=== PATIENT | female | born 1955 | race Caucasian/White ===

== ENCOUNTER 2021-05-13 08:54 | Day surgery (SDC) | payer BC ==
[2021-05-11 11:33] VITALS: BMI 35.9
[~2021-05-13 08:54] MED LIST: SODIUM CHLORIDE 0.9% 1,000 ML IV SCH
[2021-05-13 09:41] VITALS: RESP 16; TEMP 97.9
[2021-05-13 09:47] LABS: Calcium 9.5 mg/dL (8.4-10.2)
[2021-05-13 09:51] LABS: Potassium 4.8 mmol/L (3.5-5.1)
[2021-05-13] MEDS ORDERED: PROPOFOL 10 MG/ML 20 ML VIAL IV ONE (10:15)
[2021-05-13] MEDS ORDERED: SODIUM CHLORIDE 0.9% 1,000 ML IV SCH (11:00)
--- NOTE | 2021-05-13 11:36 | ECHOT ---
TRANSESOPHAGEAL ECHOCARDIOGRAM INDICATION: Persistent atrial fibrillation. PROCEDURE NOTE: After obtaining informed consent, transesophageal echocardiogram was performed in left lateral position using an Omnipl[employer] probe. Local and IV sedation were obtained by the product applications scientist. The patient tolerated the procedure well without any obvious immediate complications. The patient had 2D, M-mode color Doppler and spectral analysis. FINDINGS: 1. There is no intracardiac thrombus within the left atrial appendage, left atrium, right atrium, right ventricle or left ventricle. 2. Left atrium appears severely enlarged. 3. Right atrium and right ventricle are seen within normal limits. 4. Left ventricle has normal size and systolic function. 5. Interatrial septum: There is no evidence of [id number] shunt by color-flow Doppler or [id number] shunt by agitated saline contrast study. 6. Mitral valve shows mild to moderate central mitral regurgitation. 7. Tricuspid valve shows mild tricuspid regurgitation. 8. Aortic valve is a 3-leaflet valve. 9. There is no evidence of aortic stenosis or regurgitation. 10.Aorta is free of significant atherosclerotic changes. 11.Aortic valve is a 3-leaflet valve. CONCLUSIONS: 1. No intracardiac thrombus. 2. Mild to moderate mitral regurgitation. 3. Normal LV systolic function. MMODL / IJN: [id number] /
--- NOTE | 2021-05-13 11:58 | PCN ---
PROCEDURE NOTE PROCEDURE: Cardioversion. INDICATION: Persistent atrial fibrillation. DESCRIPTION: After making sure that the patient is adequately anticoagulated with Eliquis, ruling out intracardiac thrombus with a transesophageal echo, the patient underwent cardioversion using 150 joules of synchronized DC current. She was shocked first with 100 joules and did not convert to sinus, and converted the second time. The patient is on Eliquis, which she is going to continue. I will decrease the dose of Toprol-XL to 25 mg daily. She is on amiodarone, which she is going to continue, and she will follow up with me in [place] in one week's time. MMODL / IJN: [id number] /
[2021-05-13 19:17] VITALS: BP 109/60; PULSE 56
== END 2021-05-13 12:57 | disposition home or self-care (01) ==
LOC: CATHCVL 08:54
PROVIDERS: ATTEND Internal Medicine Cardiovascular Disease
DX: I48.19 Other persistent atrial fibrillation (principal); I08.1 Rheumatic disorders of both mitral and tricuspid valves; I10 Essential (primary) hypertension; Z79.899 Other long term (current) drug therapy; E78.2 Mixed hyperlipidemia; K21.9 Gastro-esophageal reflux disease without esophagitis; E07.9 Disorder of thyroid, unspecified; Z79.01 Long term (current) use of anticoagulants
CPT/HCPCS: 93312; 93320; 93325; 92960; 80048; J2704